=== PATIENT | male | born 1985 | race American Indian/Alaskan Native ===

== ENCOUNTER 2019-02-27 04:12 | Emergency (ER) | payer OTHER ==
[2019-02-27] MEDS ORDERED: ASPIRIN PO ONE (04:37)
--- NOTE | 2019-02-27 05:18 | XRay Report ---
PROCEDURE: XR CHEST 1V AP TECHNIQUE: Chest radiograph single view. HISTORY: Chest Pain COMPARISONS: None . FINDINGS: Frontal view of the chest was acquired and demonstrates that the heart is normal in size. T he lungs appear clear. The pleura and mediastinum are within normal limits. IMPRESSION: No active disease in the chest This document is electronically signed by Mike Garcia MD., February 27 2019 05:16:14 AM ET
[2019-02-27 05:21] LABS: Basophils # (Auto) 0.1 K/mm3 (0.0-0.1); Basophils % (Auto) 1.4 % (0.0-1.8); Eosinophils % (Auto) 0.2 % (0.0-4.3); Hematocrit 45.3 % (35.5-45.6); Hemoglobin 15.9 gm/dl (11.8-15.2); Lymphocytes # (Auto) 1.4 K/mm3 (1.2-5.4); Lymphocytes % (Auto) 31.2 % (13.4-35.0); Mean Corpuscular HGB Conc 35 % (32-34); Mean Corpuscular Volume 87 fl (84-94); Monocytes # (Auto) 0.5 K/mm3 (0.0-0.8); Monocytes % (Auto) 10.3 % (0.0-7.3); Platelet Count 222 K/mm3 (140-440); Red Cell Distribution Width 12.7 % (13.2-15.2)
[2019-02-27 05:38] LABS: BUN/Creatinine Ratio 13; Blood Urea Nitrogen 16 mg/dL (9-20); Calcium 9.7 mg/dL (8.4-10.2); Hemolysis Index 2
[2019-02-27] MEDS ORDERED: TORADOL IM ONE (06:28)
[2019-02-27] MEDS ORDERED: ALUM-MAG HYDROX-SIMETH 200-200-20MG/5ML PO ONE (06:28)
--- NOTE | 2019-02-27 07:17 | Emergency Department Report ---
ED Chest Pain HPI - General Chief Complaint: Chest Pain Stated Complaint: CHEST PAIN Time Seen by Provider: 02/27/19 06:07 Source: patient, old records reviewed (none available) Mode of arrival: Ambulatory Limitations: No Limitations - History of Present Illness Initial Comments: 35-year-old male with a past medical history of hypertension diagnosed several years ago presents to the Hospital complaining of chest pain 1 week. Patient has a history of hypertension but hasn't taken medications in at least one year. Patient saw a primary care doctor associated with [facility] 3 days ago and had a EKG and was told it was abnormal. Patient was also started on amlodipine 5 mg and hydrochlorothiazide 12.5 mg for hypertension. He was advised that patient go to the ER and therefore patient to [facility]. He had a ED workup and evaluation with final diagnosis of chest wall pain with recommendation to follow-up with cardiology as an outpatient. Patient states that this pain is in the mid lower sternal area and described as a burning pain in the answered all left sided chest pain as well. The pain is intermittent, w orse with palpation and certain body positions movements. It is also alleviated by certain positioning. Patient was not prescribed any pain medication. Today while taking out the trash patient had an episode of lightheadedness with continuing chest pain so he came into the ER. Patient complains of mild shortness of breath without nausea, vomiting, or diaphoresis. He has been taking his prescribed blood pressure medication only for the last 3-4 days. He does not take aspirin daily Aspirin, does not smoke cigarettes, does not use drugs, and is unsure about family history of CAD. He denies recent travel, calf tenderness, leg edema, or history of PE/DVT. Patient also thinks he's had incr eased indigestion and feeling like he needs to belch. Severity scale (0 -10): 8 - Related Data Previous Rx's Medication Instructions Recorded Last Taken Type Famotidine [Pepcid] 20 mg PO BID #20 tablet 02/27/19 Unknown Rx Ibuprofen [Motrin] 800 mg PO Q8HR PRN #30 tablet 02/27/19 Unknown Rx Mag Hydrox/Aluminum Hyd/Simeth 20 ml PO BID PRN #20 dose 02/27/19 Unknown Rx [Maalox Advanced Suspension] traMADol [Ultram 50 MG tab] 50 mg PO Q6HR PRN #20 tablet 02/27/19 Unknown Rx Allergies Allergy/AdvReac Type Severity Reaction Status Date / Time No Known Allergies Allergy Unverified 02/27/19 04:24 Heart Score - HEART Score History: Slightly suspicious EKG: Non-specific Age: < 45 Risk factors: 1-2 risk factors Troponin: < normal limit HEART Score: 2 ED Review of Systems ROS: Stated complaint: CHEST PAIN Other details as noted in HPI Comment: All other systems reviewed and negative ED Past Medical Hx - Past Medical History Previous Medical History?: Yes Hx Hypertension: Yes - Surgical History Past Surgical History?: No - Social History Smoking Status: Never Smoker - Medications Home Medications: Home Medications Medication Instructions Recorded Confirmed Last Taken Type Famotidine [Pepcid] 20 mg PO BID #20 tablet 02/27/19 Unknown Rx Ibuprofen [Motrin] 800 mg PO Q8HR PRN #30 tablet 02/27/19 Unknown Rx Mag Hydrox/Aluminum Hyd/Simeth 20 ml PO BID PRN #20 dose 02/27/19 Unknown Rx [Maalox Advanced Suspension] traMADol [Ultram 50 MG tab] 50 mg PO Q6HR PRN #20 tablet 02/27/19 Unknown Rx ED Physical Exam - General Limitations: No Limitations - Other Other exam information: General: No limitations, patient is alert in no acute distress Head exam: Atraumatic, normocephalic Eyes exam: Normal appearance, pupils equal reactive to light, extraocular movements intact ENT: Moist mucous membrane, normal oropharynx Neck exam: Normal inspection, full range of motion, no meningismus nontender Respiratory exam: Clear to auscultation bilateral, no wheezes, rales, crackles Cardiovascular: Normal rate and rhythm, normal heart sounds, reproducible lower sternal chest wall tenderness Abdomen: Soft, nondistended, and nontender, with normal bowel sounds, no rebound, or guarding Extremity: Full range of motion normal inspection no deformity, no calf tenderness or leg edema Back: Normal Inspection, full range of motion, no tenderness Neurologic: Alert, oriented x3, cranial nerves intact, no motor or sensory deficit Psychiatric: normal affect, normal mood Skin: Warm, dry, intact ED Course Vital Signs 02/27/19 02/27/19 02/27/19 04:29 05:56 06:03 Temperature 98 F Pulse Rate 74 74 61 Respiratory 18 12 15 Rate Blood Pressure 132/96 O2 Sat by Pulse 97 99 100 Oximetry 02/27/19 02/27/19 02/27/19 06:08 06:30 07:00 Temperature Pulse Rate 51 L 48 L Respiratory 17 13 13 Rate Blood Pressure 135/89 136/88 O2 Sat by Pulse 99 100 Oximetry 02/27/19 07:30 Temperature Pulse Rate 54 L Respiratory 14 Rate Blood Pressure 141/94 O2 Sat by Pulse 98 Oximetry ED Medical Decision Making - Lab Data Result diagrams: 02/27/19 04:38 02/27/19 04:38 Lab Results 02/27/19 02/27/19 02/27/19 Range/Units 04:38 04:38 07:01 WBC 4.6 (4.5-11.0) K/mm3 RBC 5.20 H (3.65-5.03) M/mm3 Hgb 15.9 H (11.8-15.2) gm/dl Hct 45.3 (35.5-45.6) % MCV 87 (84-94) fl MCH 31 (28-32) pg MCHC 35 H (32-34) % RDW 12.7 L (13.2-15.2) % Plt Count 222 (140-440) K/mm3 Lymph % (Auto) 31.2 (13.4-35.0) % [place] % (Auto) 10.3 H (0.0-7.3) % Eos % (Auto) 0.2 (0.0-4.3) % Baso % (Auto) 1.4 (0.0-1.8) % Lymph # 1.4 (1.2-5.4) K/mm3 [place] # 0.5 (0.0-0.8) K/mm3 Eos # 0.0 (0.0-0.4) K/mm3 Baso # 0.1 (0.0-0.1) K/mm3 Seg Neutrophils % 56.9 (40.0-70.0) % Seg Neutrophils # 2.6 (1.8-7.7) K/mm3 D-Dimer < 135.00 (0-234) ng/mlDDU Sodium 141 (137-145) mmol/L Potassium 3.5 L (3.6-5.0) mmol/L Chloride 100.8 (98-107) mmol/L Carbon Dioxide 26 (22-30) mmol/L Anion Gap 18 mmol/L BUN 16 (9-20) mg/dL Creatinine 1.2 (0.8-1.5) mg/dL Estimated GFR > 60 ml/min BUN/Creatinine Ratio 13 % Glucose 94 (75-100) mg/dL Calcium 9.7 (8.4-10.2) mg/dL Troponin T < 0.010 (0.00-0.029) ng/mL 02/27/19 Range/Units 07:15 WBC (4.5-11.0) K/mm3 RBC (3.65-5.03) M/mm3 Hgb (11.8-15.2) gm/dl Hct (35.5-45.6) % MCV (84-94) fl MCH (28-32) pg MCHC (32-34) % RDW (13.2-15.2) % Plt Count (140-440) K/mm3 Lymph % (Auto) (13.4-35.0) % [place] % (Auto) (0.0-7.3) % Eos % (Auto) (0.0-4.3) % Baso % (Auto) (0.0-1.8) % Lymph # (1.2-5.4) K/mm3 [place] # (0.0-0.8) K/mm3 Eos # (0.0-0.4) K/mm3 Baso # (0.0-0.1) K/mm3 Seg Neutrophils % (40.0-70.0) % Seg Neutrophils # (1.8-7.7) K/mm3 D-Dimer (0-234) ng/mlDDU Sodium (137-145) mmol/L Potassium (3.6-5.0) mmol/L Chloride (98-107) mmol/L Carbon Dioxide (22-30) mmol/L Anion Gap mmol/L BUN (9-20) mg/dL Creatinine (0.8-1.5) mg/dL Estimated GFR ml/min BUN/Creatinine Ratio % Glucose (75-100) mg/dL Calcium (8.4-10.2) mg/dL Troponin T < 0.010 (0.00-0.029) ng/mL - EKG Data -: EKG Interpreted by Hi EKG shows normal: sinus rhythm, axis (qrs 60), QRS complexes (qrsd 102), ST-T waves (no stemi, early repol pattern) Rate: normal (55) - EKG Data When compared to previous EKG there are: previous EKG unavailable - Radiology Data Radiology results: report reviewed PROCEDURE: XR CHEST 1V AP TECHNIQUE: Chest radiograph single view. HISTORY: Chest Pain COMPARISONS: None . FINDINGS: Frontal view of the chest was acquired and demonstrates that the heart is normal in size. The lungs appear clear. The pleura and mediastinum are within normal limits. IMPRESSION: No active disease in the chest - Medical Decision Making cp is reproducible and apear to be chest wall related. no stemi (clinically sx are not suggestive of pericarditis) trop neg x2 ekg unchanged x 2 ddimer neg with low wells petest prob for dvt/pe cxr neg low heart score improved pain with ed tx nsaids and maalox d/c with pmd and card f/u and meds pt plans to contact card this am to schedule f/u - Differential Diagnosis unstable angina, RI, pulmonary embolism, costochondritis, muscle strain Critical Care Time: No Critical care attestation.: If time is entered above; I have spent that time in minutes in the direct care of this critically ill patient, excluding procedure time. ED Disposition Clinical Impression: Acute costochondritis, Chronic hypertension Disposition: TO HOME OR SELFCARE Is pt being admited?: No Does the pt Need Aspirin: No Condition: Stable Instructions: Costochondritis (ED), Hypertension (ED) Additional Instructions: Take the medication as prescribed. Follow up with your doctor or the clinic/doctor provided. Return if symptoms worsen as indicated by your discharge instructions Prescriptions: Mag Hydrox/Aluminum Hyd/Simeth [Maalox Advanced Suspension] 20 ml PO BID PRN #20 dose PRN Reason: Indigestion Ibuprofen [Motrin] 800 mg PO Q8HR PRN #30 tablet PRN Reason: Pain, Moderate (4-6) Famotidine [Pepcid] 20 mg PO BID #20 tablet traMADol [Ultram 50 MG tab] 50 mg PO Q6HR PRN #20 tablet PRN Reason: Pain , Severe (7-10) Referrals: ESTELLA AYALA MD [Primary Care Provider] - 3-5 Days JO-ANN MORAES MD [Staff Physician] - 2-3 Days ([employer] [employer]) Time of Disposition: 08:12
[2019-02-27] MEDS ORDERED: K-DUR PO NR (07:22)
[2019-02-27] MEDS ORDERED: ASPIRIN ONE (07:58)
[2019-02-27 08:23] VITALS: BP 144/87
== END 2019-02-27 08:15 | disposition home or self-care (01) ==
LOC: ED 04:12
DX: M94.0 Chondrocostal junction syndrome [Tietze] (principal); I10 Essential (primary) hypertension
CPT/HCPCS: 36415; 71045; 80048; 84484; 85025; 85379; 93005; 93010; 96372; 99284; J1885

== ENCOUNTER 2020-01-08 09:40 | Outpatient (CLI) | payer BC ==
[2020-01-08 10:24] LABS: Hematocrit 45.2 % (35.5-45.6); Hemoglobin 15.5 gm/dl (11.8-15.2); Mean Corpuscular HGB Conc 34 % (32-34); Mean Corpuscular Volume 88 fl (84-94); Platelet Count 197 K/mm3 (140-440); Red Blood Count 5.12 M/mm3 (3.65-5.03); Red Cell Distribution Width 12.8 % (13.2-15.2)
--- NOTE | 2020-01-08 10:43 | XRay Report ---
CHEST 2 VIEWS INDICATION: CHEST PAIN,MYALGIA. COMPARISON: None. FINDINGS: Support devices: None. Heart: Within normal limits. Lungs/Pleura: No acute air space or interstitial disease. No significant pleural effusion. IMPRESSION: No acute findings. Signer Name: Sumanth Isaac MD Signed: 01/08/2020 10:39 AM Workstation Name: [id number]
[2020-01-08 10:45] LABS: Alanine Aminotransferase 59 units/L (7-56); Albumin 4.6 g/dL (3.9-5); BUN/Creatinine Ratio 11; Blood Urea Nitrogen 12 mg/dL (9-20); Calcium 9.6 mg/dL (8.4-10.2); Hemolysis Index 11; LDL Cholesterol,Direct 136 mg/dL (50-130)
[2020-01-08 10:57] LABS: ABG Base Excess 0.5 mmol/L (-2.0-3.0); ABG HCO3 24.7 mmol/L (20.0-26.0); ABG Methemoglobin 0.6 % (0.0-1.5); ABG Oxygen Saturation 97.6 % (95.0-99.0); ABG PCO2 38.7 mm Hg; ABG PH 7.423 pH Units (7.350-7.450); ABG PO2 100.7 mm Hg (80.0-90.0)
[2020-01-08 11:13] LABS: Erythrocyte Sedimentation Rate 1 mm/Hr (0-20)
[2020-01-08 11:42] LABS: Chol/HDL Ratio 4.59 %; HDL Cholesterol 44 mg/dL (40-59)
== END 2020-01-08 09:41 | disposition home or self-care (01) ==
LOC: LAB 09:40
PROVIDERS: ATTEND Internal Medicine
DX: R07.9 Chest pain, unspecified (principal); I10 Essential (primary) hypertension; M79.10 Myalgia, unspecified site
CPT/HCPCS: 36415; 36600; 71046; 80053; 80061; 82164; 82785; 82803; 84436; 84443; 85027; 85379; 85652; 86021; 86038; 86431